=== PATIENT | female | born 1940 | race Caucasian/White ===

== ENCOUNTER 2025-07-16 12:22 | Emergency (ER) | payer MEDICARE, MEDICAID, SELFPAY ==
[2025-07-16 12:24] VITALS: BP 102/53; PULSE 71; RESP 20; TEMP 36.9; O2SAT 98
[2025-07-16 12:31] VITALS: PULSE 82; O2SAT 98
--- NOTE | 2025-07-16 12:32 | XR_ITS ---
Examination: AP chest single view Technique one AP portable upright chest single view Date and time: July 16, 2025 1338 hours, comparison November 24, 2023 INDICATIONS: Fever beginning 2 days ago. FINDINGS: The film is rotated severely RPO There is opacification in the right upper lobe Normal heart size Ectatic aorta IMPRESSION: Right upper lobe pneumonia
[2025-07-16 13:17] LABS: Collection Type, Urine Voided
[2025-07-16 13:22] LABS: Bilirubin,Urine Negative (Negative); Blood,Urine Negative (Negative); Clarity,Urine Clear (Clear/Hazy); Color,Urine Yellow (Lt Yel-Yel); Culture Indicated,Urine Not Indicated; Glucose, Urine Negative (Negative); Hyaline Casts,Urine < 1 /hpf (0-1); Ketones,Urine Negative (Negative); Leukocyte Esterase,Urine Negative (Negative); Nitrite,Urine Negative (Negative); PH,Urine 6.0 (5.0-7.0); Protein,Urine 1+ (Neg - Trace); RBC,Urine 2 /hpf (0-3); Specific Gravity,Urine 1.030 (1.001-1.035); Squamous Epithelial Cell,Urine 1 /hpf (0-5); Urobilinogen,Urine 6.0 mg/dL (0.0-1.0); WBC,Urine 3 /hpf (0-5)
[2025-07-16 13:55] LABS: Lactate (Lactic Acid) 2.2 mMol/L (0.4-2.0)
[2025-07-16 13:58] LABS: Basophils # (Auto) 0.1 Thou/mm3 (0.0-0.2); Basophils % (Auto) 1 % (0-2.5); Eosinophils # (Auto) 0.1 Thou/mm3 (0.0-0.5); Eosinophils % (Auto) 0 % (0-10); Hematocrit 35.0 % (36.0-46.0); Hemoglobin 11.7 g/dL (12.0-16.0); Immature Granulocytes Auto 0.25 Thou/mm3 (0.00-0.00); Lymphocytes # (Auto) 0.9 Thou/mm3 (1.0-4.8); Lymphocytes % (Auto) 7 % (10-50); Mean Corpuscular HGB Conc 33.4 g/dl (31.0-37.0); Mean Corpuscular Hemoglobin 30.1 pg (25.0-35.0); Mean Corpuscular Volume 90 fL (80-100); Monocytes # (Auto) 1.1 Thou/mm3 (0.0-0.8); Monocytes % (Auto) 9 % (0-12); Neutrophils # (Auto) 9.7 Thou/mm3 (1.8-7.7); Neutrophils % (Auto) 81 % (37-80); Nucleated Red Blood Cell # 0.00 Thou/mm3 (0.00-0.00); Nucleated Red Blood Cell % 0 /100 WBC (0); Platelet Count 428 Thou/mm3 (140-440); RDW Standard Deviation 48.0 fL (36.4-46.3); Red Blood Count 3.89 Miln/mm3 (4.00-5.20); White Blood Count 12.0 Thou/mm3 (3.6-11.0)
[2025-07-16 14:22] LABS: Alanine Aminotransferase 15 U/L (10-49); Albumin, Serum 3.6 gm/dL (3.4-4.8); Albumin/Globulin Ratio 1.6 (1.2-2.2); Alkaline Phosphatase 95 U/L (46-116); Anion Gap 11 (7-16); Aspartate Amino Transferase 33 U/L (0-34); BUN/Creatinine Ratio 26 Ratio (12-20); Bilirubin,Total 0.4 mg/dL (0.3-1.2); Blood Urea Nitrogen 29 mg/dL (9-23); Calcium 9.3 mg/dL (8.3-10.6); Calcium (Corrected) 9.6 mg/dL (8.5-10.1); Carbon Dioxide 26.5 mMol/L (20.0-31.0); Chloride 105 mMol/L (98-107); Creatinine (Component) 1.1 mg/dL (0.6-1.3); Globulin 2.3 gm/dL (2.3-3.5); Glucose 128 mg/dL (74-106); Lipase 31 U/L (12-53); Osmolality,Calculated 290 (275-295); Potassium 3.7 mMol/L (3.4-5.1); Sodium 142 mMol/L (136-145); Total Protein 5.9 gm/dL (5.7-8.2); eGFR 49 See Note
[2025-07-16] MEDS: cefTRIAXone/D5w 1gm IV premix 1 GM/50 ML BAG IV (15:02)
--- NOTE | 2025-07-16 15:18 | PD.EDFEVER ---
ED Fever RME/HPI General Chief Complaint: Altered Mental Status Stated Complaint: AMS Time Seen by Provider: 07/16/25 12:29 Arrival date/time: 07/16/25 12:22 RME / HPI RME / HPI Narrative: Patient is a 84-year-old female who is coming from assisted living facility. She is here today with fever and mild confusion. She has a history of hypertension, hyperlipidemia, and hypothyroidism. She was sent for suspected urinary tract infection. She has had no falls or injuries. No unilateral weakness, vomiting, vision changes, or dysarthria. MD complaint: fever and weakness Related Data Home Medications ?Medication ?Instructions ?Recorded ?Confirmed clopidogrel 75 mg tablet (Plavix) 1 tab PO QDAY 03/23/18 08/27/21 famotidine 20 mg tablet 1 tab PO HS 03/23/18 08/27/21 levothyroxine 88 mcg tablet 88 mcg PO QDAY 03/23/18 08/28/21 metoprolol tartrate 25 mg tablet 1 tab PO BID 03/23/18 08/28/21 simvastatin 80 mg tablet 80 mg PO QPM 03/23/18 08/27/21 aspirin 81 mg tablet,delayed 81 mg PO QDAY 06/27/21 08/27/21 release cetirizine 10 mg tablet 10 mg PO QDAY 06/27/21 08/27/21 Previous Rx's ?Medication ?Instructions ?Recorded acetaminophen 500 mg capsule 1,000 mg (2 x 500 mg) PO TID #30 11/24/23 caps benzonatate 200 mg capsule 200 mg PO TID PRN cough #20 caps 11/24/23 albuterol sulfate 90 mcg/actuation 2 puff inhalation Q6H PRN 07/16/25 aerosol inhaler (Ventolin HFA) shortness of breath or wheezing #8.5 grams cephalexin 500 mg capsule 500 mg PO QID #28 caps 07/16/25 Allergies Allergy/AdvReac Type Severity Reaction Status Date / Time Latex, Natural Rubber Allergy Mild skin Verified 07/16/25 12:51 redness,itching adhesive tape Allergy Redness of Verified 07/16/25 12:51 Skin Penicillins Allergy Rash Verified 07/16/25 12:51 Review of Systems Review of Systems Systems Reviewed: All systems reviewed, normal except as documented Physical Exam General General appearance: in no apparent distress Head Head exam: atraumatic Eye Eye exam: Present normal appearance, PERRL and EOMI ENT ENT exam: Present normal exam, normal oropharynx and mucous membranes moist Neck Neck exam: Present normal inspection, full ROM and trachea midline Chest Chest inspection: Present normal inspection and symmetric chest wall rise Respiratory Respiratory exam: Present normal lung sounds bilaterally Cardiovascular Cardiovascular exam: Present regular rate, normal rhythm and normal heart sounds Abdominal Exam Abdominal exam: Present soft and normal bowel sounds Extremities Exam Extremities exam: Present normal inspection and full ROM Back Exam Back exam: Present normal inspection and full ROM Neurological Exam Neurological exam: Present alert Psychiatric Psychiatric exam: Present normal affect Skin Skin exam: Present warm, dry, intact and normal color ED Exam General General appearance: Present in no apparent distress Head Head exam: Present atraumatic Eye Eye exam: Present normal appearance, PERRL and EOMI ENT ENT exam: Present normal exam, normal oropharynx and mucous membranes moist Neck Neck exam: Present normal inspection, full ROM and trachea midline Chest Chest inspection: Present normal inspection and symmetric chest wall rise Respiratory Respiratory exam: Present normal lung sounds bilaterally Cardiovascular Cardiovascular exam: Present regular rate, normal rhythm and normal heart sounds Abdominal Exam Abdominal exam: Present soft and normal bowel sounds Extremities Exam Extremities exam: Present normal inspection and full ROM Back Exam Back exam: Present normal inspection and full ROM Neurological Exam Neurological exam: Present alert Psychiatric Psychiatric exam: Present normal affect Skin Skin exam: Present warm, dry, intact and normal color Course Quality Measures none Orders Category Date Time Status Bedside COVID-19 Antigen Test NOW Care 07/16/25 12:32 Active Bedside Influenza A&B Antigen Test NOW Care 07/16/25 12:33 Completed XR chest 1V Stat Exams 07/16/25 12:32 Completed Blood Culture (Lab) Stat Lab 07/16/25 14:10 Received CBC Stat Lab 07/16/25 13:40 Completed CMP [Comprehensive Metabolic Panel] Stat Lab 07/16/25 13:40 Completed Lactic Acid [Lactate (Lactic Acid)] Stat Lab 07/16/25 13:40 Results Lipase Stat Lab 07/16/25 13:40 Completed UA, C/S IF [Urinalysis, C/S if Indicated] Stat Lab 07/16/25 12:40 Completed cefTRIAXone/D5w 1gm IV premix [Rocephin/D5w 1gm IV Med 07/16/25 14:03 Discontinued premix] 1 gm in 50 ml IV X1 Vital Signs Vital signs: Vital Signs Temperature 98.4 F 07/16/25 12:24 Pulse Rate 71 07/16/25 12:24 Respiratory Rate 20 07/16/25 12:24 Blood Pressure 102/53 L 07/16/25 12:24 Pulse Oximetry (%) 98 07/16/25 12:24 Oxygen Delivery Method Nasal Cannula 07/16/25 12:24 Oxygen Flow Rate 4 07/16/25 12:24 Fever MDM Narrative MDM Narrative:: 07/16/25 08:17 34-year-old female with a history of a 16 mm ureteral stone in which a nephrostomy tube was placed presents to the emergency room for accidental dislodgment of the nephrostomy tube. Patient states she was using the restroom and accidentally completely removed the nephrostomy tube today.. Patient states she is still in the process of seeing an outpatient urologist. She denies any current pain. Has no abdominal pain, nausea, vomiting. Has no urinary changes. No fevers or chills. No drainage from the site. She has no other acute complaints.. On exam, patient is nontoxic-appearing in no visible signs distress. She is febrile but other vital signs are otherwise unremarkable. Work appears essentially unremarked with exception of findings of a right lobe pneumonia. Patient was given a dose of ceftriaxone. Vital signs remained stable for the ER course. Report was called and I spoke with PARVEZ Jenkins at her living care facility. Patient will be discharged with a prescription for albuterol for pulmonary toiletry. Will continue antibiotics as prescribed. Return as needed for any worsening emergent changes. Patient data External records reviewed:: EMS form and [facility] records Clinical information provided by:: patient and EMS Social determinants that could affect healthcare access:: none Patient has the following chronic illnesses:: Hypertension, hyperlipidemia, hypothyroidism How is presenting disease/condition affected by chronic disease/condition?: uneffected by Evaluation data The following diagnostics were reviewed and interpreted by me:: lab results and radiology exam(s) Lab and/or radiology exams considered but not ordered:: n/a Interpretation Summary: Pneumonia Medications / Prescriptions Medications or Prescriptions considered but not ordered:: n/a Medication administrations:: Medication Administration History Discontinued Medications Ceftriaxone Sodium/Dextrose (Rocephin/D5w 1gm Iv Premix) 1 gm in 50 mls @ 100 mls/hr IV X1 ONE Stop: 07/16/25 14:32 Last Admin: 07/16/25 15:02 Dose: 100 mls/hr Documented By: TM See above Consultations Consultation(s) initiated? (list below): No Diagnosis Fever Differential Diagnosis: cellulitis, fever of unknown origin, community acquired pneumonia and other (uti) Most likely diagnosis given after review of the tests above:: Pneumonia Admission Indicated Admission indicated?: not indicated Admission Request Was there a request for admission?: No Disposition Plan Disposition Plan: Admit Discharge Plan Plan Patient Disposition: HOME (Self Care) Patient condition on transfer: Stable Prescriptions/Referrals Prescriptions/Med Rec: New cephalexin 500 mg capsule 500 mg PO QID Qty: 28 0RF albuterol sulfate [Ventolin HFA] 90 mcg/actuation HFA aerosol inhaler 2 puff inhalation Q6H PRN (Reason: shortness of breath or wheezing) Qty: 8.5 0RF No Action cetirizine 10 mg Tablet 10 mg PO QDAY aspirin [Aspir-81] 81 mg Tablet,Delayed Release (Dr/Ec) 81 mg PO QDAY clopidogrel [Plavix] 75 mg Tablet 1 tab PO QDAY simvastatin 80 mg Tablet 80 mg PO QPM levothyroxine 88 mcg Tablet 88 mcg PO QDAY famotidine 20 mg Tablet 1 tab PO HS metoprolol tartrate 25 mg Tablet 1 tab PO BID acetaminophen 500 mg capsule 1,000 mg PO TID Qty: 30 0RF benzonatate 200 mg capsule 200 mg PO TID PRN (Reason: cough) Qty: 20 0RF Referrals: No Primary/Family,Physician [Primary Care Provider] - In 1 week Problem List Clinical Impression: Pneumonia Patient/Caregiver Discharge Instructions Education Materials: ED Pneumonia (Adult) Additional Instructions: - Use the provided antibiotic every 6 hours as prescribed. - Continue pulmonary toiletry. - Please have a low threshold for returning to the emergency room anytime for any worsening changes. Print Language: Italian Stand Alone Forms: [facility] Award Info., Patient Portal Info Letter
[2025-07-16 16:48] LABS: Reflex Lactate? Y
== END 2025-07-16 16:31 | disposition home or self-care (01) ==
PROVIDERS: Physician Assistant Medical; Emergency Provider Emergency Medicine
DX: J18.9 Pneumonia, unspecified organism (principal); E78.5 Hyperlipidemia, unspecified; E03.9 Hypothyroidism, unspecified; I10 Essential (primary) hypertension
CPT/HCPCS: 36415; 71045; 80053; 81001; 83605; 83690; 85025; 87040; 87400; 87811; 96365; 99283; J0696